=== PATIENT | male | born 1980 | race African-American/Black ===

== ENCOUNTER 2019-11-07 13:54 | Emergency (ER) | payer OTHER ==
[~2019-11-07] VITALS: Ht 175.3 cm; Wt 84.0 kg
--- NOTE | 2019-11-07 14:50 | PHYS DOC ---
Past Medical History Past Medical History: Hypertension Drug Use: None General Adult EDM: Chief Complaint: DIZZY/LIGHT HEADED HPI: HPI: Patient is a 39 year old male who presents with a chief complaint of 2 days of headache with some lightheadedness. Patient states he has high blood pressure and feels like his blood pressures been elevated the last couple days and has had a frontal headache. Headache is similar to past headaches he had when his blood pressures been elevated. Patient has had some intermittent visual changes but currently is at its normal. Patient denies any vomiting or diarrhea. Patient denies any neck pain or focal neurological deficits. Review of Systems: Review of Systems: Constitutional: Denies fever or chills. [] Eyes: Has some intermittent blurry vision but none currently HENT: Denies nasal congestion or sore throat. [] Respiratory: Denies cough or shortness of breath. [] Cardiovascular: Denies chest pain or edema. [] GI: Denies abdominal pain, nausea, vomiting, bloody stools or diarrhea. [] : Denies dysuria. [] Musculoskeletal: Denies back pain or joint pain. [] Integument: Denies rash. [] Neurologic: Complains of headache but no, focal weakness or sensory changes. [] Endocrine: Denies polyuria or polydipsia. [] Lymphatic: Denies swollen glands. [] Psychiatric: Denies depression or anxiety. [] Heart Score: Risk Factors: Risk Factors: DM, Current or recent (<one month) smoker, HTN, HLP, family history of CAD, obesity. Risk Scores: Score 0 - 3: 2.5% MACE over next 6 weeks - Discharge Home Score 4 - 6: 20.3% MACE over next 6 weeks - Admit for Clinical Observation Score 7 - 10: 72.7% MACE over next 6 weeks - Early Invasive Strategies Physical Exam: PE: Constitutional: Well developed, well nourished, no acute distress, non-toxic appearance. [] HENT: Normocephalic, atraumatic, bilateral external ears normal, no trismus, nose normal. [] Eyes: PERRLA, EOMI, conjunctiva normal, no discharge. [] Neck: Normal range of motion, no tenderness, supple, no stridor. [] Cardiovascular:Heart rate regular rhythm, peripheral pulses intact, cap refill brisk Lungs & Thorax: Bilateral breath sounds clear, no respiratory distress Abdomen: , soft, no tenderness, no masses, no pulsatile masses. [] Skin: Warm, dry, no erythema, no rash. [] Back: No tenderness, no CVA tenderness. [] Extremities: No tenderness, no cyanosis, no clubbing, ROM intact, no edema. [] Neurologic: Alert and oriented X 3, normal motor function, normal sensory function, no focal deficits noted. [] Psychologic: Affect normal, judgement normal, mood normal. [] Current Patient Data: Labs: Laboratory Tests Test 11/07/19 15:30 White Blood Count 5.3 x10^3/uL Red Blood Count 5.00 x10^6/uL Hemoglobin 14.6 g/dL Hematocrit 42.6 % Mean Corpuscular Volume 85 fL Mean Corpuscular Hemoglobin 29 pg Mean Corpuscular Hemoglobin Concent 34 g/dL Red Cell Distribution Width 14.0 % Platelet Count 288 x10^3/uL Neutrophils (%) (Auto) 57 % Lymphocytes (%) (Auto) 33 % Monocytes (%) (Auto) 9 % Eosinophils (%) (Auto) 1 % Basophils (%) (Auto) 1 % Neutrophils # (Auto) 3.0 x10^3/uL Lymphocytes # (Auto) 1.7 x10^3/uL Monocytes # (Auto) 0.5 x10^3/uL Eosinophils # (Auto) 0.1 x10^3/uL Basophils # (Auto) 0.0 x10^3/uL Sodium Level 140 mmol/L Potassium Level 3.8 mmol/L Chloride Level 104 mmol/L Carbon Dioxide Level 31 mmol/L Anion Gap 5 Blood Urea Nitrogen 10 mg/dL Creatinine 1.1 mg/dL Estimated GFR (Cockcroft-Gault) 89.3 Glucose Level 80 mg/dL Calcium Level 8.8 mg/dL Vital Signs: Vital Signs Date Time Temp Pulse Resp B/P (MAP) Pulse Ox O2 Delivery O2 Flow Rate FiO2 11/07/19 14:13 98.5 80 18 97 98.5 EKG: EKG: [] EKG interpreted by me normal sinus rhythm with rate of 62 normal axis normal intervals normal ST segments Radiology/Procedures: Radiology/Procedures: [] Course & Med Decision Making: Course & Med Decision Making Pertinent Labs and Imaging studies reviewed. (See chart for details) [] 39-year-old male presents with high blood pressure and some intermittent mitten lightheadedness. Patient also has had a frontal headache that similar to headaches in the past when he is at high blood pressure. Neurological exam is normal, doubt intracranial hemorrhage. Patient will be increased on his hydrochlorothiazide to 50 mg a day. Patient is maxed out on losartan currently. I discussed with him adding a third agent but he just not want that. Dragon Disclaimer: Jyothi Disclaimer: This electronic medical record was generated, in whole or in part, using a voice recognition dictation system. Departure Departure Impression: Primary Impression: Dizziness Additional Impression: High blood pressure Disposition: HOME, SELF-CARE Condition: STABLE Referrals: ALISON FLORENTINO MD (PCP) 2-3 DAYS Patient Instructions: Dizziness, Hypertension Additional Instructions: EMERGENCY DEPARTMENT GENERAL DISCHARGE INSTRUCTIONS THANK YOU for coming to [facility] Emergency Department (ED) today and trusting us with your care. We trust that you had a positive experience in our Emergency Department. If you wish to speak to the department Management you can contact the beam department supervisor at . YOUR FOLLOW UP INSTRUCTIONS ARE FOLLOWS: Do you have a private doctor? If you do not have a private doctor, please ask for a resource list of physicians or clinics that may be able to assist you with follow up care. The Emergency Physician has interpreted your x-rays. The X-ray specialist will also review them. If there is a change in the findings you will be notified in 48 hours when at all possible. A lab test or lab culture may have been done, your results will be reviewed and you will be notified if you need a change in treatment. ADDITIONAL INSTRUCTIONS AND INFORMATION Your care today has been supervised by a physician who is specially trained in emergency care. Many problems require more than one evaluation for a complete diagnosis and treatment. We recommend that you schedule your follow up appointment as recommended to ensure complete treatment of your illness or injury. If you are unable to obtain follow up care and continue to have a problem, or if your condition worsens we recommend that you return to the ED. We are not able to safely determine your condition over the phone nor are we able to give sound medical advice over the phone. For these safety reasons, if you call for medical advice we will ask you to come to the ED for further evaluation If you have any questions regarding these discharge instructions please call the ED at . SAFETY INFORMATION In the interest of safety, wellness, and injury prevention; we encourage you to wear your seatbelt, if you smoke; quit smoking, and we encourage your family to use protective helmet for bicycling and other sporting events that present an increased risk for head injury. IF YOUR SYMPTOMS WORSEN OR NEW SYMPTOMS DEVELOP, OR YOU HAVE CONCERNS ABOUT YOUR CONDITION; OR IF YOUR CONDITION WORSENS WHILE YOU ARE WAITING FOR YOUR FOLLOW UP APPOINTMENT; EITHER CONTACT YOUR PRIMARY CARE DOCTOR, THE PHYSICIAN WHOSE NAME AND NUMBER YOU WERE GIVEN, OR RETURN TO THE ED IMMEDIATELY. Scripts Hydrochlorothiazide (Hydrochlorothiazide) 25 Mg Tablet 50 MG PO DAILY, #60 TAB Prov: SHARI JEREZ MD 11/07/19 Justicifation of Admission Dx: Justifications for Admission: Justification of Admission Dx: N/A SHARI JEREZ MD Nov 07, 2019 14:50
[2019-11-07 14:56] VITALS: BP 115/76
--- NOTE | 2019-11-07 15:29 | EKG ---
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
[2019-11-07 15:37] LABS: BASO % 1 % (0-3); EOS # 0.1 x10^3/uL (0.0-0.7); EOS % 1 % (0-3); HEMATOCRIT 42.6 % (39.0-53.0); HEMOGLOBIN 14.6 g/dL (13.0-17.5); LYMPH # 1.7 x10^3/uL (1.0-4.8); LYMPH % 33 % (24-48); MEAN CORPUSCULAR HEMOGLOBIN 29 pg (25-35); MEAN CORPUSCULAR HGB CONC 34 g/dL (31-37); MEAN CORPUSCULAR VOLUME 85 fL (79-100); MONO # 0.5 x10^3/uL (0.0-1.1); MONO % 9 % (0-9); NEUT % 57 % (31-73); PLATELET COUNT 288 x10^3/uL (140-400); WHITE BLOOD COUNT 5.3 x10^3/uL (4.0-11.0)
[2019-11-07 15:47] LABS: CALCIUM 8.8 mg/dL (8.5-10.1); CREATININE 1.1 mg/dL (0.7-1.3); GFR 89.3; POTASSIUM 3.8 mmol/L (3.5-5.1)
[2019-11-07] MEDS ORDERED: HYDR25TA10 PO (16:24)
== END 2019-11-07 16:45 | disposition home or self-care (01) ==
LOC: ER 13:54
DX: R42 Dizziness and giddiness (principal); I10 Essential (primary) hypertension; R51 Headache
CPT/HCPCS: 36415; 80048; 85025; 93005; 99284

== ENCOUNTER 2020-05-10 20:37 | Emergency (ER) | payer OTHER ==
[~2020-05-10] VITALS: Ht 175.3 cm; Wt 84.1 kg
[~2020-05-10 20:37] MED LIST: HYDR25TA10 PO
--- NOTE | 2020-05-10 21:01 | PHYS DOC ---
Past Medical History Past Medical History: Hypertension Additional Past Medical Histor: COLITIS (ENRIQUETAROD APRN) Past Surgical History: No Surgical History (ROD ROBISON APRN) Smoking Status: Current Every Day Smoker Alcohol Use: Occasionally Drug Use: None (ENRIQUETAROD APRN) General Adult EDM: Chief Complaint: DIARRHEA HPI: HPI: Patient is a 40 year old male patient who presents the ED today complaining of moderate left lower quadrant abdominal pain, diarrhea sometimes bloody, symptoms began 3 days ago. Patient states he has history of hypertension and ulcerative colitis. Denies any fever. Denies any vomiting. He states he was seen in the ED a week ago for sinus infection and was started on amoxicillin. He states he is still congested. He also states he followed up with his own doctor at the beginning of last week who gave him prescription for gabapentin. He states his symptoms are still present. Off note patient is thrashing himself in the bed. He initially was refusing to talk stating he has pain he cannot talk to me. I had to let patient know it is important for him to tell me his symptoms so we can get his work-up started. (ROD ROBISON APRN) Review of Systems: Review of Systems: Constitutional: Denies fever or chills. [] Eyes: Denies change in visual acuity. [] HENT: Reports nasal congestion, denies sore throat. [] Respiratory: Denies cough or shortness of breath. [] Cardiovascular: Denies chest pain or edema. [] GI: Reports left lower quadrant abdominal pain with bloody stools, denies any vomiting : Denies dysuria. [] Musculoskeletal: Denies back pain or joint pain. [] Integument: Denies rash. [] Neurologic: Denies headache, focal weakness or sensory changes. [] Psychiatric: Denies depression or anxiety. [] (ROD ROBISON APRN) Heart Score: C/O Chest Pain: N/A Risk Factors: Risk Factors: DM, Current or recent (<one month) smoker, HTN, HLP, family history of CAD, obesity. Risk Scores: Score 0 - 3: 2.5% MACE over next 6 weeks - Discharge Home Score 4 - 6: 20.3% MACE over next 6 weeks - Admit for Clinical Observation Score 7 - 10: 72.7% MACE over next 6 weeks - Early Invasive Strategies (ROD ROBISON APRN) C/O Chest Pain: No (TERESE GOMEZ I DO) Allergies: Allergies: Allergies Coded Allergies Type Severity Reaction Last Updated Verified No Known Drug Allergies 11/07/19 No (ROD ROBISON APRN) Physical Exam: PE: Constitutional: Well developed, well nourished, no acute distress, non-toxic appearance. [] HENT: Normocephalic, atraumatic, bilateral external ears normal, oropharynx moist, no oral exudates, sounds congested nasally. Eyes: PERRLA, EOMI, conjunctiva normal, no discharge. [] Neck: Normal range of motion, no tenderness, supple, no stridor. [] Cardiovascular:Heart rate regular rhythm, no murmur [] Lungs & Thorax: Bilateral breath sounds clear to auscultation [] Abdomen: Bowel sounds normal, soft, no tenderness, no masses, no pulsatile masses. [] Skin: Warm, dry, no erythema, no rash. [] Back: No tenderness, no CVA tenderness. [] Extremities: No tenderness, no cyanosis, no clubbing, ROM intact, no edema. [] Neurologic: Alert and oriented X 3, normal motor function, normal sensory function, no focal deficits noted. [] Psychologic: Flat affect, thrashing around the bed (ROD ROBISON APRN) EKG: EKG: [] (ROD ROBISON APRN) Radiology/Procedures: Radiology/Procedures: [] (ROD ROBISON APRN) Impression: FINDINGS: The lung bases are clear. There is a low-density area with peripheral contrast enhancement in the right lobe of liver consistent with hemangioma. A similar lesion is seen medially in the lateral segment left lobe of the liver. No significant liver parenchymal abnormality is apparent. Spleen appears normal. Both kidneys enhance with contrast. No mass or obstruction is seen. The adrenal glands are not enlarged. The pancreas appears normal. No retroperitoneal or mesenteric adenopathy is seen. There is suggestion of mild wall thickening of the descending colon. There is no apparent abdominal mass or other inflammatory process. There is moderate stool through the colon. Images through the pelvis show no abnormality of the distal ureters or bladder. No pelvic or inguinal adenopathy is seen. There is suggestion of some wall thickening and mucosal enhancement of the sigmoid colon down to the rectum. No other inflammatory process is seen. Impression findings suggest left-sided colitis, consistent with given history. (TERESE GOMEZ DO) Course & Med Decision Making: Course & Med Decision Making Pertinent Labs and Imaging studies reviewed. (See chart for details) This is a 40-year-old male patient with history of ulcerative colitis presenting to the ED today complaining of abdominal pain and bloody stools for 3 days. Patient is thrashing herself in bed. Refusing to communicate at times. He was seen in the ED a week ago for sinus infection and was started on amoxicillin. He sounds congested nasally. He was also seen by the PCP for the same sinus infection and started on gabapentin for pain. CBC with a normal WBC, normal hemoglobin and hematocrit. CMP with creatinine of 1.4, BUN is normal. AST 60, ALT 139. You were negative for any acute findings. Urine drug screen positive for opiates and marijuana CT of the abdomen and pelvis is pending. [address] Gomez (ROD ROBISON APRN) Course & Med Decision Making Patient was evaluated for chief complaint. Work-up consisted of laboratory analysis and radiologic imaging. Results reviewed and discussed with patient and . Patient's white count within normal limits. Patient creatinine slightly elevated at 1.4. Treatment included IV fluid. Patient received morphine for pain. CT imaging confirms colitis. I discussed results examined the patient and he states he is concerned about sinus infection with left-sided neck discomfort and headache. Patient states he has been on amoxicillin 7 days and does not feel any better. Advised patient infectious etiology could be viral that is why antibiotics are not working. We made a joint decision to stop amoxicillin and try different antibiotic. I will try patient on Zithromax. Patient states he has been taking ibuprofen and Tylenol with minimal relief. Will prescribe patient hydrocodone--for his sinus headache neck discomfort as well as abdominal discomfort. Patient received a dose of Solu-Medrol in the ER. He will be discharged home with prednisone taper. (TERESE GOMEZ DO) Dragon Disclaimer: Dragon Disclaimer: This electronic medical record was generated, in whole or in part, using a voice recognition dictation system. (ROD ROBISON APRN) Departure Departure Impression: Primary Impression: Left lower quadrant pain Additional Impressions: Diarrhea Colitis Upper respiratory infection Disposition: 01 DC HOME SELF CARE/HOMELESS Condition: STABLE Referrals: ALISON FLORENTINO MD (PCP) Follow-up in the course of this week SHARI LOBO MD follow up in the course of this week Patient Instructions: Abdominal Pain, Diarrhea, [id number], Upper Respiratory Infection, Adult Scripts Hydrocodone/Acetaminophen (Hydrocodone-Acetamin 5-325 mg) 1 Each Tablet 1 EACH PO Q4-6HRS for 10 Days, #20 TAB Prov: TERESE GOMEZ DO 05/10/20 Azithromycin (ZITHROMAX) 250 Mg Tablet 1 PKG PO UD, #6 TAB Prov: TERESE GOMEZ I DO 05/10/20 Prednisone (PREDNISONE) 20 Mg Tablet 1 TAB PO UD for 12 Days, #15 TAB Take 2 tabs days 1,2,3 1.5 tabs days 3,4,5 1 tab days 6,7,8 0.5 tab days 9,10,11 Prov: TERESE GOMEZ DO 05/10/20 UMESHJonasROD APRN May 10, 2020 21:01 TERESE GOMEZ DO May 10, 2020 23:35
[2020-05-10 21:23] LABS: BASO % 0 % (0-3); EOS % 0 % (0-3); HEMOGLOBIN 13.5 g/dL (13.0-17.5); LYMPH # 1.5 x10^3/uL (1.0-4.8); LYMPH % 18 % (24-48); MEAN CORPUSCULAR HEMOGLOBIN 29 pg (25-35); MEAN CORPUSCULAR HGB CONC 34 g/dL (31-37); MEAN CORPUSCULAR VOLUME 85 fL (79-100); MONO # 1.4 x10^3/uL (0.0-1.1); MONO % 16 % (0-9); NEUT # 5.7 x10^3/uL (1.8-7.7); NEUT % 66 % (31-73); PLATELET COUNT 524 x10^3/uL (140-400); RED BLOOD COUNT 4.68 x10^6/uL (4.30-5.70); RED CELL DISTRIBUTION WIDTH 13.6 % (11.5-14.5); WHITE BLOOD COUNT 8.6 x10^3/uL (4.0-11.0)
[2020-05-10] MEDS ORDERED: MORPHINE SULFATE 10 MG/ML VIAL. IV ONE (21:30)
[2020-05-10] MEDS ORDERED: methylPREDNISolone SOD SUCC PF 125 MG/2 ML VIAL. IV ONE (21:30)
[2020-05-10] MEDS ORDERED: DICYCLOMINE HCL 10 MG CAPSULE PO ONE (21:30)
[2020-05-10] MEDS ORDERED: IV NORMAL SALINE 1000ML BAG 1,000 ML IV ONE (21:30)
[2020-05-10] MEDS ORDERED: FAMOTIDINE 20 MG/2 ML VIAL IVP ONE (21:30)
[2020-05-10] MEDS ORDERED: CONTRAST GIVEN. MC PRN (21:30)
[2020-05-10] MEDS ORDERED: ONDANSETRON PF 4 MG/2 ML VIAL. IVP ONE (21:30)
[2020-05-10 21:31] LABS: PROTHROMBIN TIME PATIENT 14.6 SEC (11.7-14.0)
[2020-05-10 21:37] LABS: CALCIUM 9.2 mg/dL (8.5-10.1); CREATININE 1.4 mg/dL (0.7-1.3); GFR 67.2; POTASSIUM 3.7 mmol/L (3.5-5.1)
[2020-05-10 21:39] LABS: ALBUMIN 3.1 g/dL (3.4-5.0); ALBUMIN/GLOBULIN RATIO 0.6 (1.0-1.7); MAGNESIUM 2.3 mg/dL (1.8-2.4); TOTAL BILIRUBIN 0.4 mg/dL (0.2-1.0); TOTAL PROTEIN 8.3 g/dL (6.4-8.2)
[2020-05-10] MEDS ORDERED: IOHEXOL 300 MG/ML 100ML VIAL. IV ONE (22:00)
[2020-05-10 22:17] LABS: BILIRUBIN,URINE NEGATIVE (NEG); CLARITY,URINE CLEAR; COLOR,URINE YELLOW; NITRITE,URINE NEGATIVE (NEG); PH,URINE 6.5 (<5.0-8.0); PROTEIN,URINE NEGATIVE (NEG-TRACE); UROBILINOGEN,URINE 0.2 mg/dL (0.2 mg/dL)
[2020-05-10 22:24] LABS: BARBITURATES POS (NEG); BENZODIAZEPINES NEG (NEG); CANNABINOIDS POS (NEG); COCAINE NEG (NEG); METHADONE NEG (NEG); OPIATES POS (NEG); PHENCYCLIDINE NEG (NEG)
[2020-05-10 22:25] LABS: BACTERIA,URINE 0 /HPF (0-FEW); WBC,URINE OCC /HPF (0-4)
[2020-05-10 22:28] LABS: AMPHETAMINE/METHAMPHETAMINE NEG (NEG)
--- NOTE | 2020-05-10 23:12 | RAD ---
CT abdomen and pelvis with IV contrast 05/10/2020. Reason for exam: Diarrhea and abdomen pain. History of colitis. CT images were made through the abdomen and pelvis using an infusion of 75 mL Omnipaque 300. No oral contrast given. Exposure: One or more of the following individualized dose reduction techniques were utilized for this examination: 1. Automated exposure control 2. Adjustment of the mA and/or kV acco rding to patient size 3. Use of iterative reconstruction technique. FINDINGS: The lung bases are clear. There is a low-density area with peripheral contrast enhancement in the right lobe of liver consistent with hemangioma. A similar lesion is seen medially in the later al segment left lobe of the liver. No significant liver parenchymal abnormality is apparent. Spleen a ppears normal. Both kidneys enhance with contrast. No mass or obstruction is seen. The adrenal glands are not enlarged. The pancreas appears normal. No retroperitoneal or mesenteric adenopathy is seen. There is suggestion of mild wall thickening of the descending colon. There is no apparent abdominal m ass or other inflammatory process. There is moderate stool through the colon. Images through the pelvis show no abnormality of the distal ureters or bladder. No pelvic or inguinal adenopathy is seen. There is suggestion of some wall thickening and mucosal enhancement of the sigmo id colon down to the rectum. No other inflammatory process is seen. Impression findings suggest left-sided colitis, consistent with given history. Electronically signed by: Jacek Morse Jr., MD (05/10/2020 11:10 PM) [facility]
[2020-05-10] MEDS ORDERED: PRED20TA PO (23:44)
[2020-05-10] MEDS ORDERED: AZIT250T PO (23:44)
[2020-05-10] MEDS ORDERED: HYDR-2759 PO (23:44)
[2020-05-11] MEDS ORDERED: HYDROcodone/APAP 5/325MG 1 TAB TABLET PO ONE
[2020-05-11] MEDS ORDERED: methylPREDNISolone SOD SUCC PF 125 MG/2 ML VIAL. IM ONE
[2020-05-11 00:14] VITALS: BP 143/89
== END 2020-05-11 00:25 | disposition home or self-care (01) ==
LOC: ER 20:37
DX: J06.9 Acute upper respiratory infection, unspecified (principal); K52.9 Noninfective gastroenteritis and colitis, unspecified; R10.32 Left lower quadrant pain; R51.9 Headache, unspecified; I10 Essential (primary) hypertension; F17.200 Nicotine dependence, unspecified, uncomplicated
CPT/HCPCS: 36415; 74177; 80053; 80307; 81001; 83690; 83735; 85025; 85610; 85730; 96361; 96374; 96375; 99285; G0480; J2270; J2405; J2930; J3490; J7030; Q9967

== ENCOUNTER 2021-01-12 09:30 | Emergency (ER) | payer OTHER ==
[~2021-01-12] VITALS: Ht 170.2 cm; Wt 77.9 kg
[~2021-01-12 09:30] MED LIST changes: +AZIT250T PO; +DICY10CA3 PO; +Folic Acid PO; +GABA300C18 PO; +HYDR-2759 PO; +LEVO750T5 PO; +LIALDA1.2 GM PO; +LOSA-73 PO; +NAPR500T8 PO; +PANT40TA77 PO; +PRED20TA PO; +QUET25TA3 PO; +SERT-266 PO; +THIA100T22 PO
--- NOTE | 2021-01-12 10:27 | PHYS DOC ---
Past Medical History Past Medical History: GERD, Hypertension, Migraines Additional Past Medical Histor: ulcerative colitis, Past Surgical History: No Surgical History Smoking Status: Current Every Day Smoker Alcohol Use: Heavy Drug Use: None General Adult EDM: Chief Complaint: NECK PAIN HPI: HPI: Patient is a 40-year-old male the presents today with neck pain head pain. Patient states that his pain started about 1 month ago he thought it was a migraine he was seen at [facility] and was treated, pain never got any better continues to have pain in his neck occipital area, was seen by his primary care placed on a prescription strength not NSAID and continues to have pain. Patient also states that his reflux disease is gotten worse since he has been on NSAIDs. Review of Systems: Review of Systems: Constitutional: Denies fever or chills. [] Eyes: Denies change in visual acuity. [] HENT: Denies nasal congestion or sore throat. [] Respiratory: Denies cough or shortness of breath. [] Cardiovascular: Denies chest pain or edema. [] GI: Denies abdominal pain, nausea, vomiting, bloody stools or diarrhea. [] : Denies dysuria. [] Musculoskeletal: Neck pain, head pain, upper chest wall upper back pain Integument: Denies rash. [] Neurologic: Denies headache, focal weakness or sensory changes. [] Endocrine: Denies polyuria or polydipsia. [] Lymphatic: Denies swollen glands. [] Psychiatric: Denies depression or anxiety. [] Heart Score: C/O Chest Pain: N/A Risk Factors: Risk Factors: DM, Current or recent (<one month) smoker, HTN, HLP, family hi story of CAD, obesity. Risk Scores: Score 0 - 3: 2.5% MACE over next 6 weeks - Discharge Home Score 4 - 6: 20.3% MACE over next 6 weeks - Admit for Clinical Observation Score 7 - 10: 72.7% MACE over next 6 weeks - Early Invasive Strategies Allergies: Allergies: Allergies Coded Allergies Type Severity Reaction Last Updated Verified lisinopril Adverse Reaction Intermediate cough 06/18/20 Yes Physical Exam: PE: Constitutional: Well developed, well nourished, moderate distress, nontoxic in appearance HENT: Normocephalic, atraumatic, bilateral external ears normal, oropharynx moist, no oral exudates, nose normal. [] Eyes: PERRLA, EOMI, conjunctiva normal, no discharge. [] Neck: Normal range of motion, no tenderness, supple, no stridor. [] Cardiovascular:Heart rate regular rhythm, no murmur [] Lungs & Thorax: Bilateral breath sounds clear to auscultation [] Abdomen: Bowel sounds normal, soft, no tenderness, no masses, no pulsatile masses. [] Skin: Warm, dry, no erythema, no rash. [] Back: Diffuse tenderness in his upper back thoracic area, severe tenderness in his neck area occipital area, no ecchymosis no lacerations no abrasions no contusions noted Extremities: No tenderness, no cyanosis, no clubbing, ROM intact, no edema. [] Neurologic: Alert and oriented X 3, normal motor function, normal sensory function, no focal deficits noted. [] Psychologic: Affect normal, judgement normal, mood normal. [] Current Patient Data: Labs: Laboratory Tests Test 01/12/21 10:45 White Blood Count 10.8 x10^3/uL Red Blood Count 4.10 x10^6/uL Hemoglobin 10.9 g/dL Hematocrit 32.8 % Mean Corpuscular Volume 80 fL Mean Corpuscular Hemoglobin 27 pg Mean Corpuscular Hemoglobin Concent 33 g/dL Red Cell Distribution Width 15.1 % Platelet Count 662 x10^3/uL Neutrophils (%) (Auto) 77 % Lymphocytes (%) (Auto) 10 % Monocytes (%) (Auto) 12 % Eosinophils (%) (Auto) 1 % Basophils (%) (Auto) 0 % Neutrophils # (Auto) 8.4 x10^3/uL Lymphocytes # (Auto) 1.1 x10^3/uL Monocytes # (Auto) 1.3 x10^3/uL Eosinophils # (Auto) 0.1 x10^3/uL Basophils # (Auto) 0.0 x10^3/uL Sodium Level 137 mmol/L Potassium Level 3.6 mmol/L Chloride Level 99 mmol/L Carbon Dioxide Level 31 mmol/L Anion Gap 7 Blood Urea Nitrogen 9 mg/dL Creatinine 1.1 mg/dL Estimated GFR (Cockcroft-Gault) 88.8 Glucose Level 96 mg/dL Calcium Level 8.3 mg/dL Current Medications Medications (Trade) Dose Ordered Sig/Nancy Route PRN Reason Start Time Stop Time Status Last Admin Dose Admin Ketorolac Tromethamine (Toradol 15mg Vial) 15 mg 1X ONCE IVP 01/12/21 10:30 01/12/21 10:31 DC 01/12/21 10:46 Diazepam (Valium) 5 mg 1X ONCE PO 01/12/21 10:30 01/12/21 10:31 DC 01/12/21 10:30 Vital Signs: Vital Signs Date Time Temp Pulse Resp B/P (MAP) Pulse Ox O2 Delivery O2 Flow Rate FiO2 01/12/21 10:08 18 112/74 (87) Room Air EKG: EKG: [] Radiology/Procedures: Radiology/Procedures: REASON: headache/neck pain PROCEDURE: CT HEAD AND CERVICAL SPINE WO EXAM: Head and cervical spine CT without contrast. HISTORY: Headache. Neck pain. TECHNIQUE: Computed tomographic images of the head and cervical spine were obtained without contrast. *One or more of the following individualized dose reduction techniques were utilized for this examination: 1. Automated exposure control. 2. Adjustment of the mA and/or kV according to patient size. 3. Use of iterative reconstruction technique. COMPARISON: 05/14/2020. FINDINGS: Head: There is no hemorrhage. There is no mass effect or midline shift. There is no hydrocephalus. The brizuela-white matter differentiation pattern is intact. The orbits are unremarkable. There is mild paranasal sinus mucosal thickening. The mastoid air cells are clear. There is no suspicious calvarial lesion. Cervical spine: There is no listhesis. The vertebral bodies are normal in height and the disc is are preserved. There is no fracture or suspicious osseous lesion. There is mild facet arthropathy at multiple levels. There is mild right foraminal stenosis at C3-C4. The lung apices are unremarkable. IMPRESSION: No acute intracranial finding or evidence of acute cervical spine trauma. Electronically signed by: Mikaela Romero MD (01/12/2021 11:26 AM) [id number] [] Course & Med Decision Making: Course & Med Decision Making Pertinent Labs and Imaging studies reviewed. (See chart for details) 1130 reassessment of patient chest patient resting comfortably in bed, patient states neck and head pain is a 2 /10, patient states he got up to the go to the restroom and has had some bloody diarrhea while in the department, heart rate is currently 115 we will give IV fluids. 1215 reassessment of patient patient admits to's having neck pain for months now, he has been seen by his primary care physician and been given prescription strength NSAIDs for this patient also has an appointment with a pipe bowl paint trimmer for possible cervical epidural steroid injection next Monday. Patient also admits to smoking marijuana daily to help with pain, patient also states that he has been having bloody diarrhea for the last 2 to 3 days as well. He completed a round of oral steroids 1 week ago[address] Spoke with Dr. Brumfield and she recommended not giving oral steroids to go home with. We will send patient home for follow-up with pain management clinic and patient's primary care physician and the GI specialist for management of his ulcerative colitis. [] Jyothi Disclaimer: Dragdandre Disclaimer: This electronic medical record was generated, in whole or in part, using a voice recognition dictation system. Departure Departure Impression: Primary Impression: Neck pain Additional Impression: Ulcerative colitis Qualified Codes: K51.919 - Ulcerative colitis, unspecified with unspecified complications Disposition: HOME / SELF CARE / HOMELESS Condition: STABLE Referrals: ALISON FLORENTINO MD (PCP) JAMES PLASCENCIA MD, SCOTT S MD Patient Instructions: Musculoskeletal Pain, Ulcerative Colitis Additional Instructions: Continue taking oral NSAIDs at home as prescribed earlier Take Flexeril 1 tablet 3 times daily as needed for muscle pain, avoid operating heavy machinery or making important decisions while taking this may cause dizziness Take [place] as needed for pain every 6 hours Lidoderm patches take apply in the morning and take off at night Follow-up with your primary care physician by phone today for further management of your ulcerative colitis Keep appointment with pipe bowl paint trimmer next Monday as previously stated in our conversation Scripts Hydrocodone/Acetaminophen (Hydrocodone-Acetamin 5-325 mg) 1 Each Tablet 1 EACH PO PRN Q4-6HRS PRN for PAIN, #10 TAB Prov: TERESITA HOBSON CRITICAL POWER INSTALL TECHNICIAN 01/12/21 Cyclobenzaprine Hcl (CYCLOBENZAPRINE HCL) 10 Mg Tablet 10 MG PO TID PRN PRN for PAIN, #20 TAB Prov: TERESITA HOBSON CRITICAL POWER INSTALL TECHNICIAN 01/12/21 TERESITA HOBSON CRITICAL POWER INSTALL TECHNICIAN Jan 12, 2021 10:26
[2021-01-12] MEDS ORDERED: diazePAM 5 MG TABLET PO ONE (10:30)
[2021-01-12] MEDS ORDERED: KETOROLAC 15 MG/ML VIAL. IVP ONE (10:30)
[2021-01-12 10:57] LABS: BASO % 0 % (0-3); EOS # 0.1 x10^3/uL (0.0-0.7); EOS % 1 % (0-3); HEMATOCRIT 32.8 % (39.0-53.0); HEMOGLOBIN 10.9 g/dL (13.0-17.5); LYMPH # 1.1 x10^3/uL (1.0-4.8); LYMPH % 10 % (24-48); MEAN CORPUSCULAR HEMOGLOBIN 27 pg (25-35); MEAN CORPUSCULAR HGB CONC 33 g/dL (31-37); MEAN CORPUSCULAR VOLUME 80 fL (79-100); MONO # 1.3 x10^3/uL (0.0-1.1); MONO % 12 % (0-9); NEUT # 8.4 x10^3/uL (1.8-7.7); NEUT % 77 % (31-73); PLATELET COUNT 662 x10^3/uL (140-400); RED CELL DISTRIBUTION WIDTH 15.1 % (11.5-14.5); WHITE BLOOD COUNT 10.8 x10^3/uL (4.0-11.0)
[2021-01-12 11:05] LABS: CALCIUM 8.3 mg/dL (8.5-10.1); CREATININE 1.1 mg/dL (0.7-1.3); GFR 88.8; POTASSIUM 3.6 mmol/L (3.5-5.1)
--- NOTE | 2021-01-12 11:29 | RAD ---
EXAM: Head and cervical spine CT without contrast. HISTORY: Headache. Neck pain. TECHNIQUE: Computed tomographic images of the head and cervical spine were obtained without contrast. *One or more of the following individualized dose reduction techniques were utilized for this examina tion: 1. Automated exposure control. 2. Adjustment of the mA and/or kV according to patient size. 3. Use of iterative reconstruction technique. COMPARISON: 05/14/2020. FINDINGS: Head: There is no hemorrhage. There is no mass effect or midline shift. There is no hydrocephalus. Th e brizuela-white matter differentiation pattern is intact. The orbits are unremarkable. There is mild par anasal sinus mucosal thickening. The mastoid air cells are clear. There is no suspicious calvarial le renetta. Cervical spine: There is no listhesis. The vertebral bodies are normal in height and the disc is are preserved. There is no fracture or suspicious osseous lesion. There is mild facet arthropathy at mult iple levels. There is mild right foraminal stenosis at C3-C4. The lung apices are unremarkable. IMPRESSION: No acute intracranial finding or evidence of acute cervical spine trauma. Electronically signed by: Mikaela Romero MD (01/12/2021 11:26 AM) [id number]
[2021-01-12] MEDS ORDERED: IV NORMAL SALINE 1000ML BAG 1,000 ML IV ONE (12:30)
[2021-01-12 12:53] VITALS: BP 124/77
[2021-01-12] MEDS ORDERED: CYCL10TA19 PO (12:53)
[2021-01-12] MEDS ORDERED: HYDR-2759 PO (12:53)
[2021-01-19] MEDS ORDERED: HYDR12.575 PO (13:41)
[2021-01-19] MEDS ORDERED: LOSA-73 PO (13:41)
[2021-01-19] MEDS ORDERED: BALS750C6 PO (13:41)
== END 2021-01-12 13:06 | disposition home or self-care (01) ==
LOC: ER 09:48
DX: M54.2 Cervicalgia (principal); K51.919 Ulcerative colitis, unspecified with unspecified complications; G43.909 Migraine, unspecified, not intractable, without status migrainosus; I10 Essential (primary) hypertension; K21.9 Gastro-esophageal reflux disease without esophagitis; F17.200 Nicotine dependence, unspecified, uncomplicated; F10.20 Alcohol dependence, uncomplicated; Y90.9 Presence of alcohol in blood, level not specified; Z88.6 Allergy status to analgesic agent
CPT/HCPCS: 36415; 70450; 72125; 80048; 85025; 96361; 96374; 99284; J1885; J7030

== ENCOUNTER → 2021-01-19 | Outpatient (CLI) | payer OTHER ==
[2021-01-12 12:53] VITALS: BP 124/77
[~2021-01-19] MED LIST changes: +BALS750C6 PO; +CYCL10TA19 PO; +HYDR12.575 PO; +IOHEXOL 180 MG/ML 10 ML VIAL. ONE; +methylPREDNISolone ACETATE 40 MG/ML VIAL. ONE; +methylPREDNISolone ACETATE 80 MG/ML VIAL. ONE
--- NOTE | 2021-01-19 17:01 | PDOC1 ---
INITIAL PAIN CONSULT DATE OF SERVICE: DOS: DATE: 01/19/21 TIME: 16:55 CHIEF COMPLAINT: Chief Complaint: Neck and bilateral upper extremity pain HISTORY OF PRESENT ILLNESS: 40-year-old male presents with history of pain in the base the neck and shoulders upper extremities more on the left than the right but present bilaterally since September 2020 without result of any specific injury or accident that he is aware but getting worse with time patient reports its a tight stabbing shooting throbbing pain that "takes your breath away" patient reports it feels cold in the upper mid back as well as the neck and shoulders radiating pain in the left upper extremity more than right in the anterior deltoid anterior biceps into the elbow and some in the forearm but without radiation to the fingers or hands patient reports it is radiating to the right side as well but to lesser extent than the left patient reports significant headaches with the pain difficulty sleeping is waking up from sleep when he does get to sleep least 4-5 times at night patient reports is not effective bowel bladder control does affect his ability to walk is affecting all of his activity daily living 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 Patient is been taking muscle relaxers ibuprofen as well as gabapentin all of which decrease the pain but only to moderate extent patient reports he has not had any formal physical therapy doing stretching strengthening on his own and heat application which seems to help but only temporarily as well. Patient rates his disability rating 0-10 10 being worst is a 10 with family who responsibilities recreation social activity occupation sexual behavior 8 with self-care and 10 with life support activities specially sleeping. Patient have a CT scan of the cervical spine and head showing vertebral bodies normal in height and disks are preserved no fracture suspicious osseous lesions mild facet arthropathy at multiple levels with mild right foraminal stenosis at C3-4. PAST MEDICAL HISTORY: PMH: Dizziness, headaches, ulcerative colitis, hypertension, cigarette smoking PREVIOUS SURGERIES: Past Surgical Hx: None CURRENT MEDICATIONS: Current Meds: Active Scripts Medications Dose Route/Sig Max Daily Dose Days Date Category Colazal (Balsalazide Disodium) 750 Mg Capsule 750 Mg PO DAILY 01/19/21 Reported Hydrochlorothiazide Capsule (Hydrochlorothiazide) 12.5 Mg Capsule 12.5 Mg PO DAILY 01/19/21 Reported Losartan Potassium 50 Mg Tablet 50 Mg PO DAILY 01/19/21 Reported ALLERGIES; Allergies: Coded Allergies: lisinopril (Verified Adverse Reaction, Intermediate, cough, 06/18/20) FAMILY HISTORY: Family Hx: Anemia SOCIAL HISTORY: Social Hx: Patient drinks alcohol about 2 drinks every other week smokes cigarettes and has for the last 2 years uses marijuana daily is lives with his spouse lives locally in [facility] and 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 REVIEW OF SYSTEMS: ROS: Positive for those items mentioned in history of present illness, all systems are reviewed, otherwise negative ,and are complete full and well-documented on patient's chart. PHYSICAL EXAM: VS: Blood pressure is 110/79 pulse 114 respirations 18 temperature 98.7 F height is 70 inches weight is 164 pounds PE: PHYSICAL EXAMINATION: GENERAL: The patient is awake, alert, oriented, appropriate, very pleasant in demeanor HEENT: Shows normocephalic, atraumatic. Extraocular movements are intact and symmetrical. Oral cavity: Mucous membranes moist and pink. Dentition is intact. NECK: Shows anterior throat supple without palpable lymphadenopathy noted. Swallow reflex symmetrical. CHEST: Shows normal on inspection. Breath sounds are clear bilaterally, distant but no rales rhonchi or wheezes auscultated. HEART: Shows S1, S2 clear. No murmurs auscultated. ABDOMEN: Soft, nontender, nondistended. No palpable organomegaly is noted. BACK: Shows spine grossly in the midline. Normal-appearing cervical lordotic curvature. Cervical paraspinous muscles show symmetrical with inspection on palpation some moderate tenderness diffusely throughout the upper middle lower decrease the paraspinous muscles bilaterally patient shows guarded range of motion wound of the cervical spine but full past 45 degrees right and left lateral patient has full extension full forward flexion again guarded and slow and deliberate but full rotation of motion. There is slightly increased thoracic kyphosis, some minor flattening of the lumbar lordotic curvature. EXTREMITIES: Upper extremities show deep tendon reflexes 2+ in the patellar and tendo calcaneus tendons. Motor exam is 5 on a scale of 5 with right ihsan siflexion, extension, quadriceps and hamstring flexion and 5/5 on the left. Peripheral pulses are 2+ posterior tibial. No peripheral edema is noted bilaterally. Upper extremities are warm and dry to touch, equal in color and appearance. Shoulder shrug strong and intact also drinks on resistance bilaterally. SKIN: Shows warm and dry, good turgor. No edema. No sores, rashes or bruising throughout. IMPRESSION: Impression: 40-year-old male with approximate 6-month history of pain base of neck and shoulders upper extremity more on the left than the right consistent with cervical radicular pain Myofascial pain Hypertension Ulcerative colitis Cigarette smoking Plan: Options were discussed the patient including serve medical managements physical therapies interventional techniques. Patient like to pursue interventional techniques. We discussed a cervical epidural steroid injections description as well as anatomical models to describe the procedure. Risks were discussed including but not limited to: Bleeding, infection, possibility of epidural hematoma and subsequent neurological compromise, dural puncture, headaches, spinal cord and/or nerve damage, side effects of steroid medication, and poor results regarding pain control. Patient understands and wished to proceed. Patient will return to clinic in approximately 2 weeks for follow-up, was counseled as to return appointment activity level and side effect to be aware of. Procedure cervical epidural steroid injection at the C6-7 level, using local anesthetic under sterile prep and drape using C-arm fluoroscopic guidance under local anesthesia medications injected ;120 mg Depo-Medrol +5 mL normal saline and 2 mL contrast; condition at discharge is stable patient tolerated procedure well. and had no complications JAMES PLASCENCIA MD Jan 19, 2021 17:01
--- NOTE | 2021-01-19 17:02 | PDOC4 ---
Procedure Note: ICD 10 Code: ICD 10 Code: M54.12 M50.30 Procedure Note: Patient was consented for cervical epidural steroid injection with fluoroscopic guidance. Risks were discussed including but not limited to: Bleeding, infection, possibility of epidural hematoma and subsequent neurological compromise, dural puncture, headaches, spinal cord and/or nerve damage, side effects of steroid medication, and poor results regarding pain control. Patient understands and wished to proceed. Procedure cervical epidural steroid injection at the C6-7 level, using local anesthetic under sterile prep and drape using C-arm fluoroscopic guidance under local anesthesia medications injected ;120 mg Depo-Medrol +5 mL normal saline and 2 mL contrast; condition at discharge is stable patient tolerated procedure well. and had no complications JAMES PLASCENCIA MD Jan 19, 2021 17:02
== END | disposition home or self-care (01) ==
LOC: PNCL 13:15
PROVIDERS: ATTEND Anesthesiology
DX: M50.10 Cervical disc disorder with radiculopathy, unspecified cervical region (principal); I10 Essential (primary) hypertension; F17.210 Nicotine dependence, cigarettes, uncomplicated; Z72.89 Other problems related to lifestyle; Z79.899 Other long term (current) drug therapy; Z98.890 Other specified postprocedural states; Z88.8 Allergy status to other drugs, medicaments and biological substances
CPT/HCPCS: 62321; J1030; J1040; Q9965

== ENCOUNTER → 2021-02-02 | Outpatient (CLI) | payer OTHER ==
[2021-01-12 12:53] VITALS: BP 124/77
--- NOTE | 2021-02-02 12:11 | PDOC ---
Progress Note - Pain Clinic Date of Service: DOS: DATE: 02/02/21 TIME: 12:07 Diagnosis: Dx: Cervical radiculopathy with cervical degenerative disc disease History or Present Illness: HPI: 40-year-old male returns for follow-up status post cervical epidural steroid injection x1. Patient reports he was near 100% improvement after the injection also we followed it with Toradol for 5 days as well as a Medrol Dosepak patient reports at the end of the Medrol Dosepak the pain was almost gone the pain returned however over the past several days in the base the neck and shoulders more in the neck now than the arms but also radiating the bilateral upper ext remities right and left essentially equal with significant tenderness and pain with any motion or rotation of the cervical spine as well as any weightbearing lifting patient reports difficult for him to do his work at home as he is using a computer has a different stand now which is more ergonomic hand comfortable for him but still very difficult to perform household duties secondary to the pain also disturbed sleep very frequently about every 2 hours. Patient reports no motor or sensory deficits but reports pain is cramping stabbing in the neck and shoulders that are stabbing sharp tight radiating can be constant severe and unbearable. Physical Exam: VS: Blood pressures 170/70 pulse 95 respiration 20 temperature 98.3 F weight is 174 pounds PE: PHYSICAL EXAMINATION: GENERAL: The patient is awake, alert, oriented, appropriate, very pleasant in demeanor HEENT: Shows normocephalic, atraumatic. Extraocular movements are intact and symmetrical. Oral cavity: Mucous membranes moist and pink. Dentition is intact. NECK: Shows anterior throat supple without palpable lymphadenopathy noted. Swallow reflex symmetrical. CHEST: Shows normal on inspection. Breath sounds are clear bilaterally. HEART: Shows S1, S2 clear. No murmurs auscultated. ABDOMEN: Soft, nontender, nondistended. BACK: Shows spine grossly in the midline. Normal-appearing cervical lordotic curvature. Cervical paraspinous muscles show symmetrical inspection on palpation is diffusely tender throughout the upper middle lower decrease the paraspinous muscles on the superior medial and lateral trapezius as well as the upper rhomboid distribution patient has very guarded rotation motion both laterally does perform rotation past 45 degrees as well as full extension full forward flexion again guarded in all ranges of motion. There is slightly increased thoracic kyphosis, some minor flattening of the lumbar lordotic curvature. EXTREMITIES: Upper extremities show deep tendon reflexes 2+ in the biceps and triceps tendons. 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 Peripheral pulses are 1+ radial. No peripheral edema is noted bilaterally. Upper extremities are warm and dry to touch, equal in color and appearance. SKIN: Shows warm and dry, good turgor. No edema. No sores, rashes or bruising throughout. Procedure: Procedure: Options discussed with the patient. Patient's old chart was reviewed as was his current medication list, and current view of systems updated today as well. We will proceed with a cervical epidural steroid injection today with fluoroscopic guidance. Risks were discussed including but not limited to: Bleeding, infection, possibility of epidural hematoma and subsequent neurological compromise, dural puncture, headaches, spinal cord and/or nerve damage, side effects of steroid medication, and poor results regarding pain control. Patient understands and wished to proceed. Patient return to clinic in approximate 2 weeks for follow-up, was counseled as to return appointment, activity level, and side effect beware of. Also, will call in Toradol for 5 days twice daily 10 tablets total, and Medrol Dosepak to use if needed but not to be filled immedia tely. Patient was given instructions well side effects aware of each of the medications and voices understanding on directions of use as well. Medication Injected: Med Injected: Procedure cervical epidural steroid injection at the C6-7 level, using local anesthetic under sterile prep and drape using C-arm fluoroscopic guidance under local anesthesia medications injected ;120 mg Depo-Medrol +5 mL normal saline and 2 mL contrast; condition at discharge is stable patient tolerated procedure well. and had no complications Condition at Discharge: Condition at Discharge: Condition at discharge stable, patient tolerated procedure well and had no complications. JAMES PLASCENCIA MD Feb 02, 2021 12:11
--- NOTE | 2021-02-02 12:12 | PDOC4 ---
Procedure Note: ICD 10 Code: ICD 10 Code: M54.12 M50.30 Procedure Note: Patient was consented for cervical epidural steroid injection with fluoroscopic guidance. Risks were discussed including but not limited to: Bleeding, infection, possibility of epidural hematoma and subsequent neurological compromise, dural puncture, headaches, spinal cord and/or nerve damage, side effects of steroid medication, and poor results regarding pain control. Patient understands and wished to proceed. Procedure cervical epidural steroid injection at the C6-7 level, using local anesthetic under sterile prep and drape using C-arm fluoroscopic guidance under local anesthesia medications injected ;120 mg Depo-Medrol +5 mL normal saline and 2 mL contrast; condition at discharge is stable patient tolerated procedure well. and had no complications JAMES PLASCENCIA MD Feb 02, 2021 12:12
== END | disposition home or self-care (01) ==
LOC: PNCL 11:09
PROVIDERS: ATTEND Anesthesiology
DX: M50.10 Cervical disc disorder with radiculopathy, unspecified cervical region (principal); I10 Essential (primary) hypertension; F17.210 Nicotine dependence, cigarettes, uncomplicated; Z79.899 Other long term (current) drug therapy; Z98.890 Other specified postprocedural states; Z72.89 Other problems related to lifestyle; Z88.8 Allergy status to other drugs, medicaments and biological substances
CPT/HCPCS: 62321; J1030; J1040; Q9965

== ENCOUNTER → 2021-02-16 | Outpatient (CLI) | payer OTHER ==
[~2021-02-16] MED LIST changes: +ACET500T68 PO; +DULO20CA PO; +GABA-585 PO; +IBUP-1027 PO
--- NOTE | 2021-02-16 11:05 | PDOC ---
Progress Note - Pain Clinic Date of Service: DOS: DATE: 02/16/21 TIME: 11:01 Diagnosis: Dx: Cervical radiculopathy cervical degenerative disc disease History or Present Illness: HPI: 40-year-old male returns for follow-up status post cervical epidural steroid injection last seen February 02, 2021 patient did very well with about a 90% plus improvement for the first week or so patient reports that after that though the pain is returning in the base the neck and left greater than right shoulder patient reports his arm is doing much better as is the elbow but his neck still sniffily painful in the base the neck and shoulder some on the back of the head as well more on the left side than the right with some muscle spasms as well patient reports that for the first week to 2 weeks he is doing much better able to do work activities much greater ease and comfort doing household activities try with greater ease sleeps better but now it sporadically awaken him from sleep patient reports his pain is a 7 on scale 10 is worst an average 5 its least is a 7 today patient describes aching sharp in the base the neck and the shoulder on the left tight and shooting into the left arm but doing better in the arm overall patient reports it can be constant and severe in the base the neck as well with working and reading his computer screen. Patient reports no bowel or bladder incontinence. Physical Exam: VS: Blood pressure is 127/77 pulse 73 respirations 18 temperature 98.8 F weight is 172 pound PE: PHYSICAL EXAMINATION: GENERAL: The patient is awake, alert, oriented, appropriate, very pleasant in demeanor HEENT: Shows normocephalic, atraumatic. Extraocular movements are intact and symmetrical. Oral cavity: Mucous membranes moist and pink. Dentition is intact. NECK: Shows anterior throat supple without palpable lymphadenopathy noted. Swallow reflex symmetrical. CHEST: Shows normal on inspection. Breath sounds are clear bilaterally. HEART: Shows S1, S2 clear. No murmurs auscultated. ABDOMEN: Soft, nontender, nondistended. No palpable organomegaly is noted. BACK: Shows spine grossly in the midline. Normal-appearing cervical lordotic curvature. Cervical paraspinous muscles show symmetrical inspection on palpation some tenderness diffusely throughout the upper middle lower distribution the paraspinous muscles more on the left than the right but without specific trigger points much more tender on the left side and also into the sternocleidomastoid muscle on the left side compared to the right with firm tight musculature as well very tender with palpation. Patient shows guarded rotation of motion of the cervical spine especially to the left as well as extension but not with forward flexion. There is slightly increased thoracic kyphosis, some minor flattening of the lumbar lordotic curvature. EXTREMITIES: Upper extremities show deep tendon reflexes 2+ in the biceps and triceps tendons. 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 Peripheral pulses are 2+ radial. No peripheral edema is noted bilaterally. Upper extremities are warm and dry to touch, equal in color and appearance. SKIN: Shows warm and dry, good turgor. No edema. No sores, rashes or bruising throughout. Procedure: Procedure: Options were discussed with the patient. Patient chart was reviewed his current medication regimen updated current review of systems updated today as well. We will proceed with a cervical epidural steroid injection today with fluoroscopic guidance. Risks were discussed including but not limited to: Bleeding, infection, possibility of epidural hematoma and subsequent neurological compromise, dural puncture, headaches, spinal cord and/or nerve damage, side effects of steroid medication, and poor results regarding pain control. Patient understands and wished to proceed. Patient will return to clinic in approximately 2 weeks for follow-up, was counseled as return appointment, activity level, and side effect to be aware of. Also will order physical therapy with heat massage ultrasound and cervical traction as well. Medications called in Toradol for 5 days, twice daily, Flexeril new prescription 3 times daily with instructions side effects aware discussed with each of the m edications. Medication Injected: Med Injected: Procedure cervical epidural steroid injection at the C6-7 level, using local anesthetic under sterile prep and drape using C-arm fluoroscopic guidance under local anesthesia medications injected ;120 mg Depo-Medrol +5 mL normal saline and 2 mL contrast; condition at discharge is stable patient tolerated procedure well. and had no complications Condition at Discharge: Condition at Discharge: Condition at discharge is stable, patient tolerated procedure well and had no complications. JAMES PLASCENCIA MD Feb 16, 2021 11:05
--- NOTE | 2021-02-16 11:06 | PDOC4 ---
Procedure Note: ICD 10 Code: ICD 10 Code: M54.12 M50.30 Procedure Note: Patient was consented for cervical epidural steroid injection with fluoroscopic guidance. Risks were discussed including but not limited to: Bleeding, infection, possibility of epidural hematoma and subsequent neurological compromise, dural puncture, headaches, spinal cord and/or nerve damage, side effects of steroid medication, and poor results regarding pain control. Patient understands and wished to proceed. Procedure cervical epidural steroid injection at the C6-7 level, using local anesthetic under sterile prep and drape using C-arm fluoroscopic guidance under local anesthesia medications injected ;120 mg Depo-Medrol +5 mL normal saline and 2 mL contrast; condition at discharge is stable patient tolerated procedure well. and had no complications JAMES PLASCENCIA MD Feb 16, 2021 11:06
== END | disposition home or self-care (01) ==
LOC: PNCL 09:35
PROVIDERS: ATTEND Anesthesiology
DX: M50.10 Cervical disc disorder with radiculopathy, unspecified cervical region (principal); M54.12 Radiculopathy, cervical region; I10 Essential (primary) hypertension; F17.210 Nicotine dependence, cigarettes, uncomplicated; Z79.899 Other long term (current) drug therapy; Z98.890 Other specified postprocedural states; Z72.89 Other problems related to lifestyle; Z88.8 Allergy status to other drugs, medicaments and biological substances
CPT/HCPCS: 62321; J1030; J1040; Q9965